=== PATIENT | female | born 1995 | race Caucasian/White ===

== ENCOUNTER 2017-06-03 11:42 | Emergency (ER) | payer OTHER ==
[~2017-06-03] VITALS: Ht 154.9 cm; Wt 61.5 kg
[~2017-06-03 11:42] MED LIST: HYDR-3498 PO; IBUP-1542 PO
[2017-06-03 12:03] VITALS: Ht 154.9 cm; Wt 61.5 kg
[2017-06-03] MEDS ORDERED: morphine 4 MG/ML VIAL IV STA (12:39)
[2017-06-03] MEDS ORDERED: ONDANSETRON 4 MG INJ IV STA ×2 (12:39→14:41)
[2017-06-03] MEDS ORDERED: SOD CHLORIDE 0.9% 1,000 ML IV STA (12:39)
--- NOTE | 2017-06-03 12:46 | ERD ---
ER Documentation Chief Complaint Date/Time DATE: 06/03/17 TIME: 12:44 Chief Complaint 7 WEEKS WITH AP AND VOMITING HPI 22-year-old female who is presents approximately 7 weeks with severe left-sided pelvic pain that started yesterday. Patient states that her last menstrual period was on April 14, she had a pelvic ultrasound last Saturday with her OB who is Dr. Costello's was normal. Pain is localized, sharp, severe on the left side. She denies any fevers or chills. ROS All systems reviewed and are negative except as per history of present illness. Medications Home Meds Active Scripts Ondansetron (Ondansetron Odt) 4 Mg Tab.rapdis, 4 MG PO Q6H Y for NAUSEA AND/OR VOMITING, #10 TAB Prov:REVA DSOUZA PA-C 06/03/17 Acetaminophen* (Tylophen*) 500 Mg Capsule, 1 CAP PO Q6H Y for PAIN AND OR ELEVATED TEMP, #20 CAP Prov:REVA DSOUZA PA-C 06/03/17 Ibuprofen* (Ibuprofen*) 600 Mg Tablet, 600 MG PO Q6 for PAIN, #30 TAB Prov:CLEMENCIA TORRES PA-C 04/15/15 Hydrocodone Bit-Acetaminophen* ([place]*) 5-325 Mg Tab, 1 TAB PO Q4H Y for PAIN, # 14 TAB Prov:CLEMENCIA TORRES PA-C 04/15/15 Allergies Allergies: Coded Allergies: No Known Allergy (Unverified , 04/15/15) PMhx/Soc History of Surgery: No Anesthesia Reaction: No Hx Neurological Disorder: No Hx Respiratory Disorders: No Hx Cardiac Disorders: No Hx Psychiatric Problems: No Hx Miscellaneous Medical Probl: No Hx Alcohol Use: No Hx Substance Use: No Hx Tobacco Use: No Physical Exam Vitals Vital Signs Date Time Temp Pulse Resp B/P Pulse Ox O2 Delivery O2 Flow Rate FiO2 06/03/17 12:03 97.4 73 18 118/60 99 Physical Exam General: Well-developed, well-nourished. The patient appears in no acute distress. HEENT: Head is normocephalic, atraumatic. No scleral icterus. Neck: Supple. Nontender. Lungs: Clear to auscultation. Normal air movement. Heart: Regular rate and rhythm. S1 and S2 are normal. No murmurs, gallops, or rubs. Abdomen: Soft, left-sided pelvic pain with palpation, nondistended. Bowel sounds are normoactive. Pelvic: There is no abnormal vaginal discharge, eyes closed, no bleeding, tenderness over the left side. Extremities: No clubbing or cyanosis. Normal pulses. Moving extremities x 4. No weakness. Neurologic: Alert and oriented 3. No focal deficits. Skin: Normal turgor. No rash or lesions. Result Diagram: 06/03/17 1256 06/03/17 1256 Results 24 hrs Laboratory Tests Test 06/03/17 12:56 06/03/17 13:00 White Blood Count 9.410^3/ul Red Blood Count 4.5210^6/ul Hemoglobin 13.7g/dl Hematocrit 39.9% Mean Corpuscular Volume 88.3fl Mean Corpuscular Hemoglobin 30.3pg Mean Corpuscular Hemoglobin Concent 34.3g/dl Red Cell Distribution Width 12.2% Platelet Count 47439^3/UL Mean Platelet Volume 10.1fl Neutrophils % 76.0% Lymphocytes % 17.1% Monocytes % 5.3% Eosinophils % 0.9% Basophils % 0.4% Nucleated Red Blood Cells % 0.0/100WBC Neutrophils # 7.110^3/ul Lymphocytes # 1.610^3/ul Monocytes # 0.510^3/ul Eosinophils # 0.110^3/ul Basophils # 0.010^3/ul Nucleated Red Blood Cells # 0.010^3/ul Sodium Level 138mmol/L Potassium Level 3.9mmol/L Chloride Level 105mmol/L Carbon Dioxide Level 25mmol/L Anion Gap 12 Blood Urea Nitrogen 8mg/dl Creatinine 0.70mg/dl Glucose Level 77mg/dl Calcium Level 9.5mg/dl Total Bilirubin 0.2mg/dl Direct Bilirubin 0.00mg/dl Indirect Bilirubin 0.2mg/dl Aspartate Amino Transf (AST/SGOT) 27IU/L Alanine Aminotransferase (ALT/SGPT) 61IU/L Alkaline Phosphatase 60IU/L Total Protein 7.8g/dl Albumin 4.3g/dl Globulin 3.50g/dl Albumin/Globulin Ratio 1.22 Beta HCG, Quantitative 375100.0mIU/ml Urine Color YELLOW Urine Clarity SLIGHTLY CLOUDY Urine pH 8.0 Urine Specific [place] 1.014 Urine Ketones NEGATIVEmg/dL Urine Nitrite NEGATIVEmg/dL Urine Bilirubin NEGATIVEmg/dL Urine Urobilinogen NEGATIVEmg/dL Urine Leukocyte Esterase NEGATIVELeu/ul Urine Microscopic RBC 1/HPF Urine Microscopic WBC 1/HPF Urine Squamous Epithelial Cells FEW/HPF Urine Bacteria FEW/HPF Urine Hemoglobin NEGATIVEmg/dL Urine Glucose NEGATIVEmg/dL Urine Total Protein NEGATIVEmg/dl Current Medications Medications (Trade) Dose Ordered Sig/Orquidea Route PRN Reason Start Time Stop Time Status Last Admin Dose Admin Sodium Chloride (NS) 1,000 ml @ 1,000 mls/hr Q1H STAT IV 06/03/17 12:39 06/03/17 13:38 DC 06/03/17 13:24 Morphine Sulfate (morphine) 4 mg ONCE STAT IV 06/03/17 12:39 06/03/17 12:42 DC 06/03/17 13:26 Ondansetron HCl (Zofran Inj) 4 mg ONCE STAT IV 06/03/17 12:39 06/03/17 12:42 DC 06/03/17 13:26 Ondansetron HCl (Zofran Inj) 4 mg ONCE STAT IV 06/03/17 14:41 06/03/17 14:42 DC DIAGNOSTIC IMAGING REPORT Patient: NORMA LONG : 1995 Age: 22 Sex: F MR #: [id number] DOS: 06/03/17 1239 Ordering MD: REVA DSOUZA PA-C Location: [facility] Room/Bed: PROCEDURE: OB Ultrasound. CLINICAL INDICATION: Positive test. left pelvic pain. TECHNIQUE: Ultrasound of the pelvis was performed with transabdominal sonography in the axial and sagittal planes. COMPARISON: No prior study is available for comparison. FINDINGS: There is a single intrauterine gestational sac. pole and yolk sac are present. There is heart motion. heart rate is 174 beats per minute. [place]-rump length is 1.91 cm. Mean sac diameter is 3.45 cm. Menstrual age by ultrasound dates is 8 weeks 4 days. This indicates an expected date of delivery of 01/09/2018. The right ovary appears normal measuring 3.7 x 2.3 x 2.9 cm. The left ovary appears normal measuring 2.4 x 1.6 x 1.9 cm. Color Doppler and pulsed Doppler sonography demonstrate normal flow to the ovaries. There is no other pelvic mass or free fluid. IMPRESSION: 1. Single live intrauterine gestation of 8 weeks 4 days menstrual age by ultrasound dates. 2. Expected date of delivery is 01/09/2018. RPTAT: QQ .Kareem Huertas MD, MD Date Time Electronically viewed and signed by .Kareem Huertas MD, on 06/03/2017 14:20 .R/ CC: REVA DSOUZA PA-C Procedures/MDM ED course: Patient had a large-bore IV placed was given morphine 4 mg, Zofran 4 mg IV with a fluid bolus of normal saline 1 L. Stat labs and ultrasound were ordered. Medical decision makin-year-old female presents with left-sided pelvic pain , patient's differential diagnosis is broad but is not limited to , ruptured ectopic , ectopic , tubo-ovarian abscess, PID, cervicitis, miscarriage, ovarian cyst, torsion, diverticulitis, constipation, kidney stones. Patient's pelvic ultrasound shows a single live intrauterine at 8 weeks, bilateral ovaries were visualized without evidence of masses, abscess, or free fluid. There is flow to both ovaries, without evidence of torsion. Patient's blood work is also unremarkable, there is no leukocytosis, chemistries normal, urine was negative for infection or blood. She recalls later during her course that she had the same pain 3 years ago and was seen at [facility] and at the time she was not , they did a C of the abdomen pelvis and the stated that everything was normal and her pain resolved on its own. She does not have any clinical signs for torsion, surgical abdominal process, volvulus, ischemic bowel. Patient will be given all copies of her lab work and ultrasound, and will be advised to follow- up with her OB tomorrow. The case was reviewed and discussed with Dr. Griffith who agrees with the plan of care including labs, treatment, and advanced imaging as appropriate. Departure Diagnosis: Primary Impression: Abdominal pain Additional Impression: First trimester Condition: REVA Hamlin PA-C Jun 03, 2017 12:46
[2017-06-03 13:12] LABS: BASOPHILS % 0.4 % (0.0-2.0); EOSINOPHILS # 0.1 10^3/ul (0.0-0.5); EOSINOPHILS % 0.9 % (0.0-7.0); HEMATOCRIT 39.9 % (37.0-47.0); HEMOGLOBIN 13.7 g/dl (12.0-16.0); LYMPHOCYTES # 1.6 10^3/ul (0.8-2.9); LYMPHOCYTES % 17.1 % (15.0-51.0); MEAN CORPUSCULAR HEMOGLOBIN 30.3 pg (29.0-33.0); MEAN CORPUSCULAR HGB CONC 34.3 g/dl (32.0-37.0); MEAN CORPUSCULAR VOLUME 88.3 fl (82.0-101.0); MEAN PLATELET VOLUME 10.1 fl (7.4-10.4); MONOCYTE # 0.5 10^3/ul (0.3-0.9); MONOCYTES % 5.3 % (0.0-11.0); NEUTROPHIL # 7.1 10^3/ul (1.6-7.5); PLATELET COUNT 221 10^3/UL (140-415); RED BLOOD COUNT 4.52 10^6/ul (4.20-5.40); RED CELL DISTRIBUTION WIDTH 12.2 % (11.5-14.5); WHITE BLOOD COUNT 9.4 10^3/ul (4.8-10.8)
[2017-06-03 13:28] LABS: ADD UMIC NO; UR ASCORBIC ACID NEGATIVE (NEGATIVE); UR BACTERIA FEW /HPF (NONE SEEN); UR BILIRUBIN (Dip) NEGATIVE (NEGATIVE); UR BLOOD (Dip) NEGATIVE (NEGATIVE); UR CLARITY SLIGHTLY CLOUDY (CLEAR); UR COLOR YELLOW (YELLOW); UR GLUCOSE (Dip) NEGATIVE (NEGATIVE); UR KETONES (Dip) NEGATIVE (NEGATIVE); UR LEUKOCYTE ESTERASE (Dip) NEGATIVE Leu/ul (NEGATIVE); UR NITRITE (Dip) NEGATIVE (NEGATIVE); UR RBC 1 /HPF (0-5); UR SPECIFIC GRAVITY (Dip) 1.014 (1.003-1.030); UR SQUAMOUS EPITHELIAL CELL FEW /HPF (FEW); UR TOTAL PROTEIN (Dip) NEGATIVE (NEGATIVE); UR UROBILINOGEN (Dip) NEGATIVE (NEGATIVE)
[2017-06-03 13:36] LABS: ALBUMIN 4.3 g/dl (3.3-4.9); ALBUMIN/GLOBULIN RATIO 1.22; BILIRUBIN,INDIRECT 0.2 mg/dl (0-1.1); BILIRUBIN,TOTAL 0.2 mg/dl (0.2-1.3); CALCIUM 9.5 mg/dl (8.4-10.2); CREATININE 0.7 mg/dl (0.44-1.00); POTASSIUM 3.9 mmol/L (3.5-5.1); TOTAL PROTEIN 7.8 g/dl (6.1-8.1)
--- NOTE | 2017-06-03 14:21 | RADRPT ---
PROCEDURE: OB Ultrasound. CLINICAL INDICATION: Positive test. left pelvic pain. TECHNIQUE: Ultrasound of the pelvis was performed with transabdominal sonography in the axial and sagittal planes. COMPARISON: No prior study is available for comparison. FINDINGS: There is a single intrauterine gestational sac. pole and yolk sac are present. There is heart motion. heart rate is 174 beats per minute. [place]-rump length is 1.91 cm. Mean sac diameter is 3.45 cm. Menstrual age by ultrasound dates is 8 weeks 4 days. This indicates an expected date of delivery of 01/09/2018. The right ovary appears normal measuring 3.7 x 2.3 x 2.9 cm. The left ovary appears normal measuring 2.4 x 1.6 x 1.9 cm. Color Doppler and pulsed Doppler sonography demonstrate normal flow to the ovaries. There is no other pelvic mass or free fluid. IMPRESSION: 1. Single live intrauterine gestation of 8 weeks 4 days menstrual age by ultrasound dates. 2. Expected date of delivery is 01/09/2018. RPTAT: QQ .Kareem Huertas MD, Date Time Electronically viewed and signed by .Kareem Huertas MD, on 06/03/2017 14:20 .R/
[2017-06-03] MEDS ORDERED: ACET500C5 PO (15:18)
[2017-06-03] MEDS ORDERED: ONDA4TAB14 PO (15:18)
[2017-06-03 16:04] VITALS: BP 93/53; PULSE 72; RESP 18; TEMP 98.4
== END 2017-06-03 16:08 | disposition home or self-care (01) ==
LOC: FTE 11:42
DX: O26.891 Other specified pregnancy related conditions, first trimester (principal); R10.2 Pelvic and perineal pain; Z3A.08 8 weeks gestation of pregnancy
CPT/HCPCS: 36415; 76801; 76817; 80053; 81001; 84702; 85025; 86900; 86901; 87591; 96374; 96375; J2270; J2405; J7030; Z7502; 81003

== ENCOUNTER 2017-10-11 16:41 | Outpatient (CLI) | END 2017-10-11 22:43 | disposition home or self-care (01) ==

== ENCOUNTER 2017-10-13 11:28 | Outpatient (CLI) | END 2017-10-13 14:20 | disposition home or self-care (01) ==

== ENCOUNTER 2017-12-14 06:17 | Inpatient (IN) | END 2017-12-17 16:15 | disposition home or self-care (01) | DRG 766 ==

== ENCOUNTER 2018-01-01 17:59 | Emergency (ER) | END 2018-01-01 21:50 | disposition home or self-care (01) ==